=== PATIENT | male | born 1980 | race Caucasian/White ===

== ENCOUNTER 2016-07-19 16:49 | Emergency (ER) | payer OTHER ==
[~2016-07-19] VITALS: Ht 185.4 cm; Wt 98.3 kg
[2016-07-19] MEDS ORDERED: NARCAN4 MG NS (19:48)
[2016-07-19 21:59] LABS: HEMATOCRIT 48.6 % (38.0-50.0); MCHC 33.5 G/DL (30.0-36.0); MCV 89.3 FL (86-99); MEAN PLAT.VOLUME 10.9 uM^3 (9.0-12.4); PLATELET COUNT 175 K/uL (156-360); RBC DIS.WIDTH-CV 12.8 % (11.8-14.6); RBC DIS.WIDTH-SD 42.1 % (39-53); RED BLOOD COUNT 5.44 M/uL (4.00-5.50); WHITE BLOOD COUNT 11.4 K/uL (4.1-10.2)
[2016-07-19 22:12] LABS: CHLORIDE 106 mEq/L (99-109); POTASSIUM 4.6 mEq/L (3.7-5.4); SODIUM 139 mEq/L (136-147)
[2016-07-19 22:14] LABS: GLUCOSE 112 mg/dL (70-99)
[2016-07-19 22:15] LABS: ANION GAP 7 MEQ/L (2-14)
[2016-07-19 22:17] LABS: GFR ESTIMATE (CALCULATED) > 59 mL/min/
[2016-07-19 22:18] LABS: UREA NITROGEN (BUN) 17 mg/dL (9-23)
[2016-07-19 22:19] LABS: TROP-I INTERPRETATION NEGATIVE; TROPONIN-I 0.03 ng/mL (0.0-0.30)
[2016-07-19 23:38] VITALS: BP 93/58
== END 2016-07-19 23:47 | disposition home or self-care (01) ==
LOC: EME 16:49
PROVIDERS: Emergency Medicine
DX: T40.1X1A Poisoning by heroin, accidental (unintentional), initial encounter (principal); F17.200 Nicotine dependence, unspecified, uncomplicated
CPT/HCPCS: 71020; 80048; 84484; 85027; 93005; 99281; 99284; J2310